=== PATIENT | male | born 1945 | race Caucasian/White ===

== ENCOUNTER → 2016-11-10 | Outpatient (REF) ==
[~2016-11-10] MED LIST: FENTANYL 25 MCG TOP; FERROUS SULFATE65 MG PO; GLUCOVANCE 1.251 TAB PO; NEURONTIN300 MG/CAP PO; NORCO 325 MG-51 TAB PO; PRINZIDE 12.5 M1 TAB PO; SANTYL250 U/GM TP; SILVASORB TP; ZYLOPRIM 300MG300 MG PO; [UNRECOGNIZED DRUG - SUPPLY]
== END ==
LOC: ZLAB.WCH 15:13
DX: Z01.89 Encounter for other specified special examinations (principal)

== ENCOUNTER → 2017-01-05 | Outpatient (REF) | LOC: ZLAB.WCH 10:44 | DX: Z01.89 Encounter for other specified special examinations (principal) | CPT/HCPCS: G0103 ==

== ENCOUNTER → 2017-03-16 | Outpatient (REF) | LOC: ZLAB.WCH 09:20 | DX: Z01.89 Encounter for other specified special examinations (principal) ==

== ENCOUNTER → 2017-06-12 | Outpatient (REF) | LOC: ZLAB.WCH 09:03 | DX: Z01.89 Encounter for other specified special examinations (principal) ==